=== PATIENT | male | born 1940 | race Caucasian/White ===

== ENCOUNTER 2016-12-03 13:45 | Emergency (ER) | payer OTHER ==
[~2016-12-03] VITALS: Ht 172.7 cm; Wt 55.0 kg
[~2016-12-03 13:45] MED LIST: ACET-1311 PO; ACET325T96 PO; ACLI1AER3 INH; BENZ10LO2 PO; CARB25TA12 PO; CLON0.5T20 PO; CLOP1TAB15 PO; DLCS PR; DOCU100T PO; DUTACAP PO; FAMO20TA11 PO; FLUT1INH7 INH; HYDR-5688 PO; HYDR2.5C37 TOP; LEVO-459 PO; MAGNSUS5 PO; MENTOIN12 TOP; ONDA4TAB10 SL; PANT40TA PO; POLY335019 PO; PRAV10TA39 PO; SENN-61 PO; SODIENE PR; TRAM-10 PO; VNTHFA/IN INH
[2016-12-03 13:53] VITALS: TEMP 36.4; Ht 172.7 cm; Wt 55.0 kg
--- NOTE | 2016-12-03 14:41 | EMERGENCY ROOM VISIT NOTE ---
History Report prepared by Shin: Renée Borjas Under the Supervision of: Dr. Jaciel Donovan D.O. First contact with patient: 14:24 Chief Complaint: URINARY SYMPTOMS Stated Complaint: BLOOD IN URINE Nursing Triage Summary: pt. sent to ed from [facility] [place], pt.'s urologist is in [place] accoding to the [facility], pt. has indwelling catheter that began producing blood in his urine at 0500 this am, pt. report abdominal pain History of Present Illness The patient is a 76 year old male who presents to the Emergency Room with complaints of urinary symptoms starting today. He has a [address] catheter in place which requires 10 mls of fluid. As per [facility] notes, the catheter was placed on 10/17/16. This morning, the patient had 500 cc of red urine. He currently complains of severe abdominal pain. The patient denies chest pain, shortness of breath, or any other complaints. Source of History: patient Onset: today Position: other (global) Quality: other (urinary symptoms) Associated Symptoms: + abdominal pain, No SOB, No chest pain Review of Systems See HPI for pertinent positives and negatives. A total of 10 systems reviewed and were otherwise negative. Past Medical & Surgical Medical Problems: (1) Anxiety disorder (2) CAD (coronary artery disease) (3) COPD (chronic obstructive pulmonary disease) (4) Enlarged prostate (5) Gross hematuria (6) Parkinson disease (7) Pneumonia (8) Urinary obstruction Surgical Problems: (1) H/O heart bypass surgery Family History Patient reports no known family medical history. Social History Smoking Status: Former Smoker Marital Status: Housing Status: [facility] Occupation Status: retired Current/Historical Medications Scheduled Acetaminophen (Tylenol), 650 MG PO QAM Aclidinium [place] (Tudorza Pressair), 1 PUFF INH Q12 Albuterol Hfa (Ventolin Hfa), 2 PUFFS INH QID Carbidopa/Levodopa (Sinemet 25MG/100MG), 2 TAB PO QID Clonazepam (Clonazepam Odt), 0.25 MG PO QAM Clopidogrel (Plavix), 75 MG PO QAM Docusate Sodium (Dok), 100 MG PO AMPM Dutasteride-Tamsulosin Hcl (Ophelia), 1 CAP PO HS Famotidine (Pepcid), 20 MG PO BID Fluticasone Furoate-Vilanterol (Breo Ellipta 200-25 Mcg/INH), 2 PUFF INH DAILY Hydrocortisone 2.5% (Rectal) (Anusol-Hc 2.5%), 1 APPLN TOP BID Levofloxacin (Levaquin), 500 MG PO Q48H Pantoprazole (Protonix), 40 MG PO DAILY Polyethylene Glycol 3350 (Miralax), 17 GM PO DAILY Pravastatin Sodium (Pravastatin Sodium), 1 TAB PO HS Scheduled PRN Acetaminophen Tab (Tylenol), 650 MG PO Q4 PRN for Pain or Fever Benzocaine-Menthol (Mouth-Thro (Cepacol Sore Throat), 1 ABELRADO PO Q2H PRN for COUGH /SORE THROAT Bisacodyl (Bisac-Evac), 10 MG AK DAILY PRN for if mom ineffective Hydrocodone/Acetaminophen 5MG/325MG ([place] 5MG/325MG), 1 TABLET PO Q6H PRN for Pain Magnesium Hydroxide (Milk Of Magnesia), 30 ML PO DAILY PRN for Constipation Menthol-Zinc Oxide (Risamine), 1 APPLN TOP QID PRN for AFFECTED AREAS Ondasetron Odt (Zofran Odt), 4 MG SL Q6H PRN for Nausea Senna (Senokot), 2 TABS PO DAILY PRN for Constipation Sodium Phosphate/Biphosphate (Fleet Enema), 1 EA AK DAILY PRN for if dulcolax ineffective Tramadol (Ultram), 50 MG PO Q6 PRN for Moderate Pain Allergies Coded Allergies: Carbapenems (Verified Allergy, Unknown, unk, 02/21/16) Cephalosporins (Verified Allergy, Unknown, unk, 02/21/16) Codeine (Verified Allergy, Unknown, unk, 02/21/16) All allergy information per [place] Ethylenediamine (Verified Allergy, Unknown, unk, 02/21/16) Morphine and Related (Verified Allergy, Unknown, unk, 02/21/16) Nitrates, Organic (Verified Allergy, Unknown, unk, 02/21/16) Oxycodone (Verified Allergy, Unknown, unk, 02/21/16) PABA Derivatives (Verified Allergy, Unknown, unk, 02/21/16) Penicillins (Verified Allergy, Unknown, unk, 02/21/16) Physical Exam Vital Signs Date Time Temp Pulse Resp B/P Pulse Ox O2 Delivery O2 Flow Rate FiO2 12/03/16 13:53 36.4 65 14 102/53 96 Room Air Physical Exam GENERAL: Patient is well appearing and in no acute distress. HEENT: No acute trauma, normocephalic atraumatic, mucous membranes moist, no nasal congestion, no scleral icterus. NECK: No stridor, no adenopathy, no meningismus, trachea is midline. LUNGS: No dyspnea. Clear to auscultation and equal bilaterally. No wheeze, no rhonchi. HEART: Regular rate and rhythm. No murmurs, rubs, gallops appreciated. ABDOMEN: Soft, nontender, bowel sounds positive, no masses appreciated, no peritonitis. : Circumcised male, normal external genitalia, Jacob present, patient is in diapers. BACK: No midline tenderness, no CVA tenderness EXTREMITIES: Normal motion all extremities, no cyanosis, no edema. NEUROLOGIC: Alert and oriented, no acute motor or sensory deficits, no focal weakness, cranial nerves grossly intact. SKIN: No rash, no jaundice, no diaphoresis. Medical Decision & Procedures Medications Administered Medications (Trade) Dose Ordered Sig/Pete Route Start Time Stop Time Status Last Admin Dose Admin Acetaminophen (Tylenol Tab) 500 mg NOW STAT PO 12/03/16 15:20 12/03/16 15:22 DC 12/03/16 15:33 500 MG Procedure After discontinuation of the Jacob, the patient's urethral meatus was draped and prepped with Betadine 3. A 16 [place] coud Jacob catheter was inserted, blood-tinged urine was noted to be returning freely in the catheter the balloon was then inflated with 10 ML's of sterile water. The Jacob continued to drain urine which progressed to clear yellow urine. Patient tolerated the procedure well ED Course 1424: The patient was evaluated in room C01B. A complete history and physical exam was performed. 1520: Tylenol Tab 500 mg PO 1535: Reevaluated the patient. Discussed results and discharge instructions: He verbalized understanding and agreement. The patient is ready for discharge. Medical Decision Patient presents from [facility] for a dysfunctional, blocked urinary catheter. Bladder scan revealed 350 mL of urine attempts are made to flush the catheter and was not functioning. I reviewed prior records the patient was admitted approximately October 17 for acute urinary retention and a Jacob catheter was placed. He was supposed to follow-up with Dr. Miguel Sue @ [facility]. [facility] case management was in contact with [place], they faxed over the patient's POLST form was concerns he is a DNR/DNI in event of cardiac arrest. There is no complaint of fevers chills, this is a acute malfunction of the patient's Jacob. Per case management Jass was under the belief that the Jacob only needed to be changed and there was not follow-up with urology. I confirmed with case management that the patient does in fact need to be followed up with a urologist and again are stressing the instructions to follow- up as previously directed. Today at bedside we removed a standard Jacob was replaced with a 16 [place] coud Jacob, there was some difficulty passing a past the prostate, however I was able to achieve this there was urine noted draining and the catheter before inflation of the balloon. Patient does have some mild bleeding from the urethral meatus. However the Jacob is in place and draining. At this point the patient will be transported back to [facility] with instructions to follow-up with urology as previously noted. Impression Primary Impression: Jacob catheter in place prior to arrival Additional Impressions: Jacob catheter problem Urinary catheter (Jacob) change required Prostatic enlargement Scribe Attestation The scribes documentation has been prepared under my direction and personally reviewed by me in its entirety. I confirm that the note above accurately reflects all work, treatment, procedures, and medical decision making performed by me. Departure Information Dispostion Home / Self-Care Referrals Luis Onofre M.D. (PCP) Forms HOME CARE DOCUMENTATION FORM, IMPORTANT VISIT INFORMATION Patient Instructions ED Catheter Care Jacob, My [facility] Additional Instructions Return for fevers, chills, or any other signs of infection. Patient was previously instructed to follow-up with Dr. Miguel Sue @ [facility]. The patient must follow-up with Dr. Miguel Sue @ [facility] in 1-2 weeks. Problem Qualifiers
[2016-12-03] MEDS ORDERED: ACETAMINOPHEN 500 MG TAB PO STA (15:20)
[2016-12-03] MEDS ORDERED: RIVA3CAP4 PO (15:42)
[2016-12-03 19:26] VITALS: BP 159/69; PULSE 69; O2SAT 95
== END 2016-12-03 19:26 | disposition home or self-care (01) ==
LOC: EDBD 13:45 → C.EDC 13:47
DX: T83.83XA Hemorrhage due to genitourinary prosthetic devices, implants and grafts, initial encounter (principal); N40.1 Benign prostatic hyperplasia with lower urinary tract symptoms; G20 Parkinson's disease; I25.10 Atherosclerotic heart disease of native coronary artery without angina pectoris; J44.9 Chronic obstructive pulmonary disease, unspecified; Z87.891 Personal history of nicotine dependence; Y84.6 Urinary catheterization as the cause of abnormal reaction of the patient, or of later complication, without mention of misadventure at the time of the procedure